=== PATIENT | female | born 1990 | race Caucasian/White ===

== ENCOUNTER 2018-02-06 13:15 | Inpatient (IN) | payer OTHER ==
[~2018-02-06] VITALS: Ht 162.6 cm; Wt 152.0 kg
[2018-02-20] MEDS ORDERED: PRENATAL 19 TA1 EACH PO (08:57)
[2018-02-22] MEDS ORDERED: Ferro-Plex CAPLET PO (15:50)
[2018-02-22] MEDS ORDERED: Proctofoam RECTAL (15:50)
[2018-02-22] MEDS ORDERED: ANUCORT-HC25 MG RECTAL (15:50)
[2018-02-22] MEDS ORDERED: HYDROCORTISO453.6 G1 RECTAL (15:50)
== END 2018-02-22 16:54 | DRG 775 ==
LOC: LDR 02-16 15:00 → SURH 02-16 15:00 → LDR 02-20 07:59 → OB/GYN 02-20 18:00 → SURH 02-27 15:00
PROC: 10E0XZZ Delivery of Products of Conception, External Approach (ICD-10-PCS; principal; 2018-02-20)
PROC: 10907ZC Drainage of Amniotic Fluid, Therapeutic from Products of Conception, Via Natural or Artificial Opening (ICD-10-PCS; 2018-02-20)
PROC: 3E0P7VZ Introduction of Hormone into Female Reproductive, Via Natural or Artificial Opening (ICD-10-PCS; 2018-02-20)
PROC: 3E033VJ Introduction of Other Hormone into Peripheral Vein, Percutaneous Approach (ICD-10-PCS; 2018-02-20)
PROC: 4A1HXCZ Monitoring of Products of Conception, Cardiac Rate, External Approach (ICD-10-PCS; 2018-02-20)
DX: O99.824 Streptococcus B carrier state complicating childbirth (principal); Z3A.39 39 weeks gestation of pregnancy; Z37.0 Single live birth

== ENCOUNTER 2019-07-06 19:45 | Emergency (ER) | payer OTHER ==
[~2019-07-06] VITALS: Ht 162.6 cm; Wt 62.6 kg
[~2019-07-06 19:45] MED LIST: ANUCORT-HC25 MG RECTAL; Ferro-Plex CAPLET PO; HYDROCORTISO453.6 G1 RECTAL; PRENATAL 19 TA1 EACH PO; Proctofoam RECTAL
== END 2019-07-06 20:36 | disposition home or self-care (01) ==
LOC: ER 19:45
DX: S40.022A Contusion of left upper arm, initial encounter (principal); X58.XXXA Exposure to other specified factors, initial encounter; Y93.89 Activity, other specified; Y92.89 Other specified places as the place of occurrence of the external cause; Y99.8 Other external cause status; R21 Rash and other nonspecific skin eruption

== ENCOUNTER 2020-08-31 01:09 | Emergency (ER) | payer OTHER ==
[~2020-08-31] VITALS: Ht 162.6 cm; Wt 65.8 kg
[2020-08-31] MEDS ORDERED: PEPCID AC10 MG PO (03:06)
[2020-08-31] MEDS ORDERED: AMOX1TAB5 PO (03:06)
[2020-08-31] MEDS ORDERED: INTESTINEX680 M2 PO (03:06)
[2020-08-31] MEDS ORDERED: PERCOCET 5-3251 EACH PO (03:07)
[2020-08-31] MEDS ORDERED: ACETAMINOPHEN500 M1 PO (04:26)
== END 2020-08-31 04:29 | disposition home or self-care (01) ==
LOC: ER 01:09
DX: S61.421A Laceration with foreign body of right hand, initial encounter (principal); W25.XXXA Contact with sharp glass, initial encounter; Y93.89 Activity, other specified; Y92.89 Other specified places as the place of occurrence of the external cause; Y99.8 Other external cause status

== ENCOUNTER 2020-09-08 14:16 | Emergency (ER) | payer OTHER ==
[~2020-09-08] VITALS: Ht 177.8 cm; Wt 68.0 kg
[~2020-09-08 14:16] MED LIST changes: +ACETAMINOPHEN500 M1 PO; +AMOX1TAB5 PO; +INTESTINEX680 M2 PO; +PEPCID AC10 MG PO; +PERCOCET 5-3251 EACH PO
[2020-09-08] MEDS ORDERED: DOLOGEN CAPLET1 EACH PO (16:35)
== END 2020-09-08 17:31 | disposition home or self-care (01) ==
LOC: ER 14:16
DX: Z48.02 Encounter for removal of sutures (principal)